=== PATIENT | male | born 1945 | race Caucasian/White ===

== ENCOUNTER → 2017-10-03 | Outpatient (CLI) | payer MEDICARE ==
--- NOTE | 2017-10-04 10:09 | RSPPFT ---
DATE OF PROCEDURE: 10/03/17 COMMENTS: VOLUMES DYNAMIC: FVC mildly reduced; FEV1 moderately reduced. STATIC: TLC, FRC mildly reduced; RV mildly increased. FLOWS: FEV1% mildly reduced; FEF 25-75 severely reduced. DIFFUSION: Moderately reduced. FLOW VOLUME LOOP: Pattern of variable intrathoracic airways obstruction. IMPRESSION: Moderately severe obstructive ventilatory defect with hyperinflation and a reduction in diffusion consistent with emphysema. There is some improvement post-bronchodilator.
== END ==
LOC: HRSP 12:02
PROVIDERS: ATTEND Internal Medicine
DX: J44.9 Chronic obstructive pulmonary disease, unspecified (principal)
CPT/HCPCS: 94060; 94618; 94726; 94729